=== PATIENT | male | born 1935 | race Caucasian/White ===

== ENCOUNTER 2016-10-30 05:52 | Inpatient (IN) ==
[2016-10-29 12:36] LABS: Basophils # 0.1 10*3/uL (0.0-0.2); Basophils % 0.7 % (0.0-0.8); Eosinophils # 0.2 10*3/uL (0.0-0.87); Eosinophils % 2.7 % (0.00-10.9); Hematocrit 41.8 VOL% (42.0-52.0); Hemoglobin 14.7 GM/DL (14.0-18.0); Immature Granulocytes % 0.7 %; Immature Granulocytes Absolute 0.06 #; Lymphocytes # 2.2 10*3/uL (1.4-4.0); Lymphocytes % 26.1 % (21.2-54.2); Mean Corpuscular HGB Conc 35.2 GM/DL (32-36); Mean Corpuscular Hemoglobin 31 PG (27-34); Mean Corpuscular Volume 89.1 FL (87-102); Mean Platelet Volume 10.7 FL (9.6-12.0); Monocytes % 11.4 % (1.7-12.7); Neutrophils % 58.4 % (38.7-73.9); Platelet Count 152 T/CUMM (130-400); Red Blood Count 4.69 MC/CUMM (3.8-5.5); White Blood Count 8.6 T/CUMM (4-12)
[2016-10-29 13:17] LABS: Albumin 3.8 G/DL (3.4-5.0); Bilirubin,Total 0.6 MG/DL (0.2-1.0); Osmolality,Calculated 283.1 MOS/KG (273-304); Potassium 5.1 MMOL/L (3.5-5.1); Total Protein 6.5 G/DL (6.4-8.3)
[2016-10-30] MEDS ORDERED: VANCOMYCIN INJ 500 MG in SODIUM CHLORIDE 0.9% 100 ML IV ONE (06:00)
[2016-10-30] MEDS ORDERED: VANCOMYCIN 500 MG VIAL ONE ×2 (06:04→07:07)
[2016-10-30] MEDS ORDERED: SODIUM CHLORIDE 0.9% 100 ML IV ONE (06:06)
[2016-10-30] MEDS ORDERED: LACTATED RINGERS 1,000 ML IV SCH (06:30)
[2016-10-30] MEDS ORDERED: VANCOMYCIN 1,000 MG VIAL ONE (06:32)
[2016-10-30] MEDS ORDERED: HEPARIN 5,000 UNIT/1 ML VIAL ONE (06:32)
[2016-10-30] MEDS ORDERED: THROMBIN TOPICAL (RECOMBINANT) 5,000 UNIT VIAL TOP ONE (06:33)
[2016-10-30] MEDS ORDERED: LIDOCAINE 2% TOP JELLY 20 ML VIAL INTRAURETH ONE (07:05)
[2016-10-30] MEDS ORDERED: HEPARIN/NACL 0.9% 2 UNITS/ML 2,000 ML IV ONE (07:33)
[2016-10-30] MEDS ORDERED: FAMOTIDINE 20 MG TABLET PO ONE (07:35)
[2016-10-30] MEDS ORDERED: LORazepam 1 MG TABLET PO ONE (07:35)
--- NOTE | 2016-10-30 07:44 | History and Physical Update ---
History and Physical Update - History and Physical H&P was reviewed, the patient examined and there: are no changes in the patients condition since last H&P was completed. - Physical Exam Mental Status: alert and oriented Heart: regular rate and rhythm Lung: clear to auscultation Abdomen: within normal limits Vitals: within normal limits
[2016-10-30] MEDS ORDERED: HEPARIN/NACL 0.9% 2 UNITS/ML 1,000 ML IV ONE (07:48)
[2016-10-30] MEDS ORDERED: DEXAMETHASONE 4 MG/1 ML VIAL ONE (08:00)
[2016-10-30] MEDS ORDERED: ROCURONIUM 100 MG/10 ML VIAL IV ONE (08:00)
[2016-10-30] MEDS ORDERED: PROPOFOL 200 MG/20 ML VIAL IV ONE (08:00)
[2016-10-30] MEDS ORDERED: ONDANSETRON 4 MG/2 ML VIAL ONE (08:00)
[2016-10-30] MEDS ORDERED: diphenhydrAMINE 50 MG/1 ML VIAL ONE (08:00)
[2016-10-30] MEDS ORDERED: LIDOCAINE 2% 5 ML VIAL ONE (08:00)
[2016-10-30] MEDS ORDERED: MIDAZOLAM 2 MG/2 ML VIAL ONE (08:04)
[2016-10-30] MEDS ORDERED: MIDAZOLAM 2 MG/2 ML VIAL IV ONE (08:08)
[2016-10-30] MEDS ORDERED: methylPREDNISolone SOD SUC 125 MG/2 ML VIAL ONE (08:48)
[2016-10-30 11:37] LABS: Apearance,Urine CLEAR (Clear); Bilirubin,Urine Negative (Negative); Blood, Urine Negative (Negative); Glucose,Urine (UA) Negative (Negative); Ketones,Urine Negative (Negative); Mucus,Urine Occasional /LPF (Occasional); Nitrite,Urine Negative (Negative); Protein,Urine Negative; RBC,Urine 1 /HPF (0-4); Squamous Epithelial Cell,Urine Occasional /HPF (0-10); Urine Color Yellow (Yellow); Urine Specific Gravity 1.013 (1.001-1.035); Urine Urobilinogen < 2.0 EU/DL (0.2-1.0); WBC,Urine 1 /HPF (0-6)
[2016-10-30 12:00] LABS: Hematocrit 35.7 VOL% (42.0-52.0)
[2016-10-30 12:01] LABS: Hemoglobin 12.5 GM/DL (14.0-18.0)
[2016-10-30] MEDS ORDERED: HYDROmorphone 2 MG/1 ML VIAL IV PRN (12:39)
[2016-10-30] MEDS ORDERED: oxyCODONE/ACETAMINOPHEN 5-325 MG TABLET PO PRN (12:39)
[2016-10-30] MEDS ORDERED: ONDANSETRON 4 MG/2 ML VIAL IV PRN (12:39)
--- NOTE | 2016-10-30 12:51 | Operative Note ---
Date of procedure: 10/30/16 Procedure: Dr. Agudelo operative report Pepito Flores. 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 Open repair of the right common femoral artery aneurysm with 8 mm Hemashield graft. Indications for the procedure Mr. 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 extensive vascular calcification at the bifurcation of the aorta after careful evaluation and discussion we have recommended a endovascular repair of his abdominal aortic and iliac aneurysms and repair of the right common femoral artery have explained the procedure its risks and complications in detail which he understands and accepts Description of the procedure: Patient is placed under general endotracheal anesthesia in the interventional radiology suite's abdomen groins are prepped with ChloraPrep and Ioban and draped in the usual fashion I began by making an incision over the right common femoral artery dissecting up under the inguinal ligament to control the external iliac artery and vein separately controlled the superior superficial femoral and profunda femoris vessels there was a significant common femoral artery aneurysm and this was controlled the patient received 5000 units of intravenous heparin. At this point Dr. Miguel Vincent joined the case and proceeded with the initial placement of catheters and the coil embolization of the inferior mesenteric artery Dr. Madie Vincent completed the placement of the ovation graft and its leg extensions to the bifurcation of the common iliacs completion angioplasty and arteriography was carried out the details of that portion of the procedure are separately dictated by Dr. Ramachandran. After the completion of the satisfactory repair of the aortic and iliac artery aneurysms I then proceeded to repair the right common femoral artery aneurysm by placing a Satinsky clamp across the external iliac and controlling the superficial femoral and profunda with Vesseloops. Notably the patient had bled around the sheaths throughout the placement of the endograft that required me to hold pressure throughout the entire placement of endograft was then able to move with control of the artery open and debride away the aneurysmal portion of divided and amputated the aneurysm just at the bifurcation of the common femoral and at the underneath the inguinal ligament did do a partial endarterectomy on both hands to remove extensive hard plaque I chose an 8 mm Hemashield graft and anastomosed it in 2 and to the external iliac artery then flushed backflush the superior professional femoral and profunda and anastomosis the graft and into the bifurcation of the common femoral artery with 5-0 Prolene suture.. Graft was flushed in the lymph her back flushed prior to completing that anastomosis flow was restored into first the profunda and then to the superficial femoral and on noted by Doppler good flow as well as palpable pulses in both vessels hemostasis was good I elected not to reverse the heparin at this point due to the fact that the patient had to have extra doses of heparin throughout the case based on a CTs. Hemostasis did appear to be good irrigated used Tisseel around the anastomoses and in the femoral canal I closed the incision with running 2-0 Monocryl on the deep tissues and 4-0 Monocryl on the skin. Blood loss is estimated 1200 cc sponge needle and instrument counts are correct patient's feet were warm and well-perfused completion of the procedure he maintained steady heart rate blood pressure and urine out through output throughout the operation. Surgeon / Physician: Kavon Agudelo Results - Labs CBC & BMP: 10/30/16 11:54 10/29/16 12:20 Discharge Plan - Discharge Medications No Action Multivitamin [Multivitamins] 1 each PO DAILY Aspirin [Ecotrin] 325 mg PO DAILY Carvedilol 12.5 mg PO BID Simvastatin 40 mg PO BEDTIME Lisinopril [Prinivil] 20 mg PO DAILY Metformin HCl [Metformin HCl ER] 500 mg PO DAILY - Follow Up or Referral - Forms/Instructions
--- NOTE | 2016-10-30 13:30 | Anesthesia Post-Op ---
Anesthesia Post OP - Post Ansesthetic Evaluation Patient seen in post op: Yes Resp: within normal limits CV: within normal limits Mental: within normal limits Temp: within normal limits [id number]: within normal limits Nausea and Vomiting: within normal limits Pain: within normal limits
[2016-10-30] MEDS ORDERED: SEVOFLURANE 1 UNIT/15 MINUTE INH ONE (14:05)
[2016-10-30] MEDS ORDERED: LACTATED RINGERS 1,000 ML IV ONE (14:05)
[2016-10-30] MEDS ORDERED: SODIUM CHLORIDE 0.9% 2,000 ML IV ONE (14:05)
[2016-10-30 15:22] LABS: Hematocrit 37.2 VOL% (42.0-52.0); Hemoglobin 12.8 GM/DL (14.0-18.0)
[2016-10-30 16:10] LABS: Calcium 8.4 MG/DL (8.5-10.1); Osmolality,Calculated 288.8 MOS/KG (273-304); Potassium 4.4 MMOL/L (3.5-5.1)
[2016-10-30] MEDS: DEXTROSE 5% NACL 0.45% 1,000 ML IV SCH (16:38)
--- NOTE | 2016-10-30 16:44 | Event Note ---
Mr. is awake and alert with good vital signs but has a bit of confusion his feet are warm although I do not palpate pedal pulses today blood work looks good postoperatively vital signs look good incisions look good
[2016-10-30] MEDS ORDERED: SIMVASTATIN 40 MG TABLET PO SCH (21:00)
[2016-10-30] MEDS: CARVEDILOL 12.5 MG TABLET PO SCH (21:09)
[2016-10-31] MEDS: DEXTROSE 5% NACL 0.45% 1,000 ML IV SCH ×2 (00:20→06:04)
--- NOTE | 2016-10-31 00:59 | Interventional Radiology Rpt ---
IR endo repair AAA [id number], IR endo repair AAA ext [id number], US guide vascular access 10/30/2016 7:47 AM Operating Physicians: Dawit Ramachandran M.D. Zuhair Agudelo M.D., Marcelino Vincent M.D. Indication: Bilateral common iliac artery aneurysms Total number of images were procedure: 723 General anesthesia was utilized for the procedure. See anesthesia notes for further details. Intravenous heparin 10,000 units was administered with interval ACT checks as needed. Time out: A formal timeout performed. Patient was placed under general endotracheal anesthesia. Dr. Benton Agudelo provided primary cutdown to the right common femoral arteries, which will be described under separate report if necessary. The right common femoral artery was directly accessed with a vascular needle. This was cannulized with a Momailson wire which was advanced into the suprarenal abdominal aorta. Needle was exchanged for a standard 6 Liberian vascular sheath and initially, a Cobra catheter advanced into the suprarenal abdominal aorta. Initial attempt to cannulate the inferior mesenteric artery are unsuccessful. A large ill 3 lumbar artery was incidentally catheterized and arteriogram series 1 demonstrates filling of this prominent lumbar vessel. The standard 6 Liberian sheath was then exchanged for a 12 Liberian working sheath over the stiff wire. A Yanick catheter was then advanced and used to catheterize the inferior mesenteric artery. This was confirmed with brief arteriogram, series 2. Subsequent, a single 7 x 3 tornado coil was advanced and deployed without difficulty into the proximal inferior mesenteric artery. Subsequent, the marker wire was then readvanced into the upper abdominal aorta. Attention was then turned towards percutaneous access of the left common femoral artery. Using ultrasound guidance, the left common femoral artery was accessed without difficulty. Ultrasound image catheter was stored for the patient's permanent record. At this point, the Perclose device was utilized and left in position for vascular closure at the conclusion of the case. Subsequently, the 12 Liberian vascular working sheath was advanced into the left common iliac artery without difficulty. Subsequently, the main body graft was advanced through the ipsilateral right common femoral artery access site. The measuring pigtail catheter was advanced through the left/contralateral access. 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 Initial positioning of the main body and 29 mm Ovation IX Endograft was confirmed with subsequent deployment of the suprarenal fixators without difficulty. At this point, the polymer was mixed and connected to the injection port and allowed to fill with the provided syringe compressor. Fluoroscopy now demonstrates the polymer filling the graft, as expected At this point we obtained contralateral limb access with a Glidewire via left groin access. The flush catheter was withdrawn over a Glidewire. Glidewire was then withdrawn and the contralateral gate directly accessed. The flush catheter was advanced into the lumen of the primary device and spun to confirm intraluminal positioning. Through the left groin sheath, a retrograde right pelvis arteriogram was performed in an ARABIC projection to confirm the position of the origin of the left hypogastric artery. Subsequently, the 22 x 160 iliac limb delivery system was advanced over the guidewire and deployed without difficulty. The ipsilateral limb of the main body was then deployed in its entirety. The deployment apparatus was removed. Through the right groin sheath, a retrograde left pelvic arteriogram was performed to confirm the ostium of the right hypogastric artery. After measurements were established, the ipsilateral/right 22 x 140 iliac railroad dining car stewardess was deployed into the right common iliac artery. At this point, the Reliant balloon was then advanced through the contralateral sheath and the main body and proximal ceiling rings were tacked down. Attention was then returned towards the right limb. Due to tortuosity and mild aneurysmal dilatation of the vessel, the ipsilateral limb was short above the anticipated landing zone and, therefore, an 18 x 120 railroad dining car stewardess was subsequently deployed with good apposition proximal and distal. Sequential angioplasty was then performed by and Dr. Agudelo utilizing 12 x 40 mm balloons from the inflow portion of the main body device, through the flow divider, and to the outflow portion of both iliac extenders. From the right groin, a flush catheter was then advanced into the suprarenal abdominal aorta. An aortogram was performed demonstrating probable type III endoleak via prominent lumbar vessels or possible type I A leak, which was minimal. Given the findings of adequate graft positioning and exclusion of the bilateral common iliac aneurysms, there was felt to be no further intervention required at this time. Attention was then turned towards closing the left common femoral artery percutaneous access. The 2 previously deployed Perclose devices were then utilized to obtain hemostasis without culture. Sterile dressings were applied. The right-sided sheath and wire were removed and Dr. Agudelo primarily repaired and then subsequently closed the right arteriotomy site, which will be described under separate report. Patient was awakened and transferred to recovery in stable condition. Estimated blood loss: 500 mL. Contrast: Omnipaque 350, 150 cc. Fluoroscopy time: 39.2 minutes. Impression: Technically successful endovascular repair of bilateral common iliac artery aneurysms utilizing Ovation iX Endograft as described above. PROCEDURE INTERPRETED AT [facility] DEPARTMENT OF RADIOLOGY Final Report Signed by: Dawit Ramachandran
[2016-10-31 06:36] LABS: Basophils % 0.1 % (0.0-0.8); Eosinophils % 0.1 % (0.00-10.9); Hematocrit 31.3 VOL% (42.0-52.0); Immature Granulocytes % 0.7 %; Immature Granulocytes Absolute 0.09 #; Lymphocytes # 1.5 10*3/uL (1.4-4.0); Lymphocytes % 11.4 % (21.2-54.2); Mean Corpuscular HGB Conc 33.2 GM/DL (32-36); Mean Corpuscular Hemoglobin 30 PG (27-34); Mean Corpuscular Volume 91.3 FL (87-102); Mean Platelet Volume 11.4 FL (9.6-12.0); Monocytes # 1.4 10*3/uL (0.11-0.8); Monocytes % 11.2 % (1.7-12.7); Neutrophils # 9.9 10*3/uL (1.4-7.4); Neutrophils % 76.5 % (38.7-73.9); Red Cell Distribution Width 13.1 % (9.3-17.3)
[2016-10-31 06:47] LABS: Red Blood Count 3.43 MC/CUMM (3.8-5.5); White Blood Count 12.9 T/CUMM (4-12)
[2016-10-31 06:48] LABS: Hemoglobin 10.4 GM/DL (14.0-18.0); Platelet Count 121 T/CUMM (130-400)
[2016-10-31 07:09] LABS: Calcium 7.7 MG/DL (8.5-10.1); Osmolality,Calculated 284.1 MOS/KG (273-304); Potassium 4.3 MMOL/L (3.5-5.1)
[2016-10-31] MEDS ORDERED: DEXTROSE 50% 25 GM/50 ML VIAL IV PRN (07:55)
[2016-10-31] MEDS ORDERED: GLUCAGON 1 MG VIAL IM PRN (07:55)
--- NOTE | 2016-10-31 08:45 | Event Note ---
There is diffuse awake alert ambulating doing well feet and legs feel good incision okay. I will go ahead and stop his IV fluids start a diabetic diet have him ambulate this morning he may we will be ready to go home this afternoon. Blood count has dropped to 31 but be creatinine are good so there is no indication for transfusion
[2016-10-31] MEDS ORDERED: LISINOPRIL 20 MG TABLET PO SCH (09:00)
[2016-10-31] MEDS ORDERED: ASPIRIN EC 325 MG TABLET PO SCH (09:00)
[2016-10-31] MEDS: CARVEDILOL 12.5 MG TABLET PO SCH (09:29)
[2016-10-31 11:12] VITALS: BP 106/49
--- NOTE | 2016-10-31 13:10 | Discharge Summary ---
Hospital Course - Hospital Course Hospital Course: Mr. Chriss Flores 80-year-old man was admitted with abdominal aortic and bilateral iliac and a right common femoral artery aneurysm he underwent endovascular repair of the aortic and iliac aneurysms and open repair of the right common femoral aneurysm he is up and ambulatory his vital signs are good blood counts are good and he is ready for discharge have discussed with him wound care exercise diet and medications I will add Plavix 75 mg twice daily for approximately 3 months and we will give him Percocet for pain I will see him in the office in 1 week and then routine follow-up with CT angiograms at regular intervals as is the norm. Specialty Discharge - Follow Up or Referrals Discharge Plan - Discharge Data Disposition: Disch To Home/Self Care Condition at Discharge: Stable Discharge Diet: diabetic diet Activity: resume usual activities as tolerated Hygiene: may shower Weight Bearing at Discharge: full weight bearing Driving: not until seen by doctor Contact your physician if you experience:: fever over 101, Redness or swelling, Bleeding - Discharge Medications New Clopidogrel [Plavix] 75 mg PO DAILY #90 tablet oxyCODONE/ACETAMINOPHEN 5-325 [Percocet 5-325] 1 tablet PO Q4H PRN #20 tablet PRN Reason: Pain Moderate To Severe (4-10) Continue Multivitamin [Multivitamins] 1 each PO DAILY Aspirin [Ecotrin] 325 mg PO DAILY Carvedilol 12.5 mg PO BID Simvastatin 40 mg PO BEDTIME Lisinopril [Prinivil] 20 mg PO DAILY Metformin HCl [Metformin HCl ER] 500 mg PO DAILY Docusate Sodium [Stool Softener] 100 mg PO DAILY Nitroglycerin Sl Tab [Nitrostat] 0.4 mg SL Q5M PRN PRN Reason: Chest Pain - Follow Up or Referral Follow Up: Kavon Agudelo MD [Physician] - 1 Week - Forms/Instructions Instructions: Endovascular Abdominal Aortic Aneurysm Repair (DC) Exam - Constitutional Vitals: Period Temp Pulse Resp BP Sys/Rodriguez Pulse Ox Last 24 Hr 97.2 F-998.0 F 54-94 14-24 92-119/43-69 95-100 Discharge Results Labs on day of discharge: Labs from last 24 hours 10/31/1617 10/30/16 05:32 05:32 16:15 WBC 12.9 H D RBC 3.43 L D Hgb 10.4 L D Hct 31.3 L MCV 91.3 MCH 30 MCHC 33.2 RDW 13.1 Plt Count 121 L D MPV 11.4 Neut % (Auto) 76.5 H Lymph % (Auto) 11.4 L Rooks % (Auto) 11.2 Eos % (Auto) 0.1 Baso % (Auto) 0.1 Neut # (Auto) 9.9 H Lymph # (Auto) 1.5 Rooks # (Auto) 1.4 H Eos # (Auto) 0.0 Baso # (Auto) 0.0 Immature Gran % 0.7 Nucleated RBC % 0.0 Immature Gran # 0.09 Nucleated RBCs # 0.00 Sodium 142 Potassium 4.3 Chloride 108 H Carbon Dioxide 25 Anion Gap 13.3 BUN 12 Creatinine 0.90 GFR Calculation 111 BUN/Creatinine Ratio 13.00 Glucose 129 H POC Glucose 160 H Calculated Osmolality 284.1 Calcium 7.7 L 10/30/16 10/30/16 15:08 15:08 WBC RBC Hgb 12.8 L Hct 37.2 L MCV MCH MCHC RDW Plt Count MPV Neut % (Auto) Lymph % (Auto) Rooks % (Auto) Eos % (Auto) Baso % (Auto) Neut # (Auto) Lymph # (Auto) Rooks # (Auto) Eos # (Auto) Baso # (Auto) Immature Gran % Nucleated RBC % Immature Gran # Nucleated RBCs # Sodium 144 Potassium 4.4 Chloride 111 H Carbon Dioxide 22 Anion Gap 15.4 H BUN 12 Creatinine 0.80 GFR Calculation 116 BUN/Creatinine Ratio 15.00 Glucose 152 H POC Glucose Calculated Osmolality 288.8 Calcium 8.4 L DS: Provider Date of admission: 10/30/16 05:52 Primary care physician: Cheyanne Francois Attending physician on admission: Kavon Agudelo MD Discharging clinician: Kavon Agudelo MD
== END 2016-10-31 14:45 | disposition home or self-care (01) | DRG 270 ==
LOC: N.SDSINP 05:52 → N.3E 14:47
PROVIDERS: ADMIT Surgery; ATTEND Surgery
PROC: IRERAAA (2016-10-30 07:30)

== ENCOUNTER 2017-11-13 23:07 | Inpatient (IN) ==
[2017-11-14] MEDS ORDERED: FUROSEMIDE 100 MG/10 ML VIAL IV STA (01:18)
[2017-11-14] MEDS ORDERED: cefTRIAXone 1,000 MG in SODIUM CHLORIDE 0.9% 100 ML IV STA (01:18)
[2017-11-14 01:45] LABS: Basophils # 0.1 10*3/uL (0.0-0.2); Basophils % 0.6 % (0.0-0.8); Eosinophils # 0.2 10*3/uL (0.0-0.87); Eosinophils % 1.7 % (0.00-10.9); Hemoglobin 13.4 GM/DL (14.0-18.0); Immature Granulocytes % 0.5 %; Immature Granulocytes Absolute 0.05 #; Lymphocytes # 2.1 10*3/uL (1.4-4.0); Lymphocytes % 22.4 % (21.2-54.2); Mean Corpuscular HGB Conc 34.4 GM/DL (32-36); Mean Corpuscular Hemoglobin 31 PG (27-34); Mean Corpuscular Volume 90.5 FL (87-102); Mean Platelet Volume 11.9 FL (9.6-12.0); Monocytes # 1.2 10*3/uL (0.11-0.8); Monocytes % 12.6 % (1.7-12.7); Neutrophils # 5.9 10*3/uL (1.4-7.4); Neutrophils % 62.2 % (38.7-73.9); Platelet Count 163 T/CUMM (130-400); Red Blood Count 4.31 MC/CUMM (3.8-5.5); Red Cell Distribution Width 13.3 % (9.3-17.3); White Blood Count 9.4 T/CUMM (4-12)
[2017-11-14 01:54] LABS: INR 1.1; PT Patient Result 11.7 SECS; Partial Thromboplastin Time 25.7 SECS (0-40)
[2017-11-14 01:57] LABS: ABG Base Excess -2.8 MMOL/L (-2.5-2.5); ABG HCO3 22.1 MMOL/L (20-26); ABG Oxygen Saturation 97.1 % (95-100); ABG PCO2 29.6 MM HG (35-48); ABG PH 7.442 (7.35-7.45); ABG PO2 92.8 MM HG (80-95); ABG TCO2 17.5 MMOL/L (23-27); Allen Test Positive
[2017-11-14] MEDS ORDERED: FUROSEMIDE 40 MG/4 ML VIAL ONE (01:59)
[2017-11-14 02:09] LABS: Albumin 3.7 G/DL (3.4-5.0); Bilirubin,Total 0.9 MG/DL (0.2-1.0); Calcium 8.8 MG/DL (8.5-10.1); Osmolality,Calculated 281.5 MOS/KG (273-304); Potassium 4.5 MMOL/L (3.5-5.1); Total Protein 6.3 G/DL (6.4-8.3)
[2017-11-14] MEDS ORDERED: FUROSEMIDE 40 MG/4 ML VIAL IV SCH (08:32)
[2017-11-14] MEDS ORDERED: GLUCAGON 1 MG VIAL IM PRN (08:32)
[2017-11-14] MEDS ORDERED: DEXTROSE 50% 25 GM/50 ML VIAL IV PRN (08:32)
[2017-11-14] MEDS ORDERED: NITROGLYCERIN SL 0.4 MG TABLET SL PRN (08:32)
[2017-11-14] MEDS ORDERED: ASPIRIN EC 325 MG TABLET PO SCH (09:00)
[2017-11-14] MEDS ORDERED: ENOXAPARIN 40 MG/0.4 ML SYRINGE SUBCUT SCH (09:00)
[2017-11-14] MEDS: DOCUSATE SODIUM 100 MG CAPSULE PO SCH (09:21)
[2017-11-14] MEDS: POLYCARBOPHIL 625 MG TABLET PO SCH (09:21)
[2017-11-14] MEDS: LISINOPRIL 20 MG TABLET PO SCH (09:21)
[2017-11-14] MEDS: POTASSIUM CHLORIDE 20 MEQ TABLET PO SCH ×2 (09:21→21:33)
[2017-11-14] MEDS: PANTOPRAZOLE 40 MG TABLET PO SCH (09:21)
[2017-11-14] MEDS: CARVEDILOL 12.5 MG TABLET PO SCH ×2 (09:21→21:33)
[2017-11-14] MEDS: MULTIVITAMIN (CENTRUM) TABLET PO SCH (09:21)
[2017-11-14] MEDS: ENOXAPARIN 120 MG/0.8 ML SYRINGE SUBCUT SCH (15:32)
[2017-11-14] MEDS: FUROSEMIDE 40 MG/4 ML VIAL IV SCH (15:32)
[2017-11-14 20:42] LABS: Apearance,Urine CLEAR (Clear); Bilirubin,Urine Negative (Negative); Blood, Urine Negative (Negative); Glucose,Urine (UA) Negative (Negative); Hyaline Casts,Urine 2 /LPF (0-3); Ketones,Urine Negative (Negative); Mucus,Urine Occasional /LPF (Occasional); Nitrite,Urine Negative (Negative); Protein,Urine Negative; Urine Color Yellow (Yellow); Urine Specific Gravity 1.006 (1.001-1.035); WBC,Urine <1 /HPF (0-6)
[2017-11-14] MEDS: SIMVASTATIN 40 MG TABLET PO SCH (21:33)
[2017-11-15] MEDS: ENOXAPARIN 120 MG/0.8 ML SYRINGE SUBCUT SCH ×2 (04:10→16:10)
[2017-11-15 06:17] LABS: Basophils # 0.1 10*3/uL (0.0-0.2); Basophils % 0.9 % (0.0-0.8); Eosinophils # 0.1 10*3/uL (0.0-0.87); Eosinophils % 1.7 % (0.00-10.9); Hematocrit 40.6 VOL% (42.0-52.0); Hemoglobin 13.6 GM/DL (14.0-18.0); Immature Granulocytes % 0.8 %; Immature Granulocytes Absolute 0.06 #; Lymphocytes # 1.7 10*3/uL (1.4-4.0); Mean Corpuscular HGB Conc 33.5 GM/DL (32-36); Mean Corpuscular Hemoglobin 30 PG (27-34); Mean Corpuscular Volume 89.8 FL (87-102); Mean Platelet Volume 11.8 FL (9.6-12.0); Monocytes % 12.8 % (1.7-12.7); NRBC # 0.02 10*3/uL; Neutrophils # 4.8 10*3/uL (1.4-7.4); Neutrophils % 61.8 % (38.7-73.9); Platelet Count 148 T/CUMM (130-400); Red Blood Count 4.52 MC/CUMM (3.8-5.5); Red Cell Distribution Width 13.3 % (9.3-17.3); White Blood Count 7.8 T/CUMM (4-12)
[2017-11-15 06:49] LABS: Osmolality,Calculated 281.5 MOS/KG (273-304); Potassium 4.6 MMOL/L (3.5-5.1)
[2017-11-15] MEDS: MULTIVITAMIN (CENTRUM) TABLET PO SCH (08:58)
[2017-11-15] MEDS: POLYCARBOPHIL 625 MG TABLET PO SCH (08:58)
[2017-11-15] MEDS: CARVEDILOL 12.5 MG TABLET PO SCH ×2 (08:59→21:01)
[2017-11-15] MEDS: PANTOPRAZOLE 40 MG TABLET PO SCH (08:59)
[2017-11-15] MEDS: POTASSIUM CHLORIDE 20 MEQ TABLET PO SCH ×2 (08:59→21:01)
[2017-11-15] MEDS: DOCUSATE SODIUM 100 MG CAPSULE PO SCH (08:59)
[2017-11-15] MEDS: ASPIRIN EC 81 MG TABLET PO SCH (08:59)
[2017-11-15] MEDS: LISINOPRIL 20 MG TABLET PO SCH (08:59)
[2017-11-15] MEDS: FUROSEMIDE 40 MG/4 ML VIAL IV SCH ×2 (09:01→16:11)
[2017-11-15] MEDS ORDERED: LACTULOSE 20 GM/30 ML UDCUP PO PRN (20:27)
[2017-11-15] MEDS: SIMVASTATIN 40 MG TABLET PO SCH (21:01)
[2017-11-16] MEDS: ENOXAPARIN 120 MG/0.8 ML SYRINGE SUBCUT SCH (05:10)
[2017-11-16 05:45] LABS: Basophils # 0.1 10*3/uL (0.0-0.2); Basophils % 0.9 % (0.0-0.8); Eosinophils # 0.1 10*3/uL (0.0-0.87); Eosinophils % 1.5 % (0.00-10.9); Hematocrit 39.8 VOL% (42.0-52.0); Hemoglobin 13.6 GM/DL (14.0-18.0); Immature Granulocytes % 0.5 %; Immature Granulocytes Absolute 0.04 #; Lymphocytes # 2.1 10*3/uL (1.4-4.0); Mean Corpuscular HGB Conc 34.2 GM/DL (32-36); Mean Corpuscular Hemoglobin 31 PG (27-34); Mean Corpuscular Volume 89.4 FL (87-102); Mean Platelet Volume 11.9 FL (9.6-12.0); Monocytes # 1.2 10*3/uL (0.11-0.8); Monocytes % 14.2 % (1.7-12.7); NRBC # 0.02 10*3/uL; Neutrophils # 4.7 10*3/uL (1.4-7.4); Neutrophils % 56.9 % (38.7-73.9); Platelet Count 146 T/CUMM (130-400); Red Blood Count 4.45 MC/CUMM (3.8-5.5); Red Cell Distribution Width 13.3 % (9.3-17.3); White Blood Count 8.2 T/CUMM (4-12)
[2017-11-16 06:19] LABS: Calcium 9.1 MG/DL (8.5-10.1); Osmolality,Calculated 281.5 MOS/KG (273-304); Potassium 4.8 MMOL/L (3.5-5.1)
[2017-11-16 08:18] VITALS: BP 99/64
[2017-11-16] MEDS: FUROSEMIDE 40 MG/4 ML VIAL IV SCH (08:52)
[2017-11-16] MEDS: POLYCARBOPHIL 625 MG TABLET PO SCH (08:55)
[2017-11-16] MEDS: POTASSIUM CHLORIDE 20 MEQ TABLET PO SCH (08:55)
[2017-11-16] MEDS: MULTIVITAMIN (CENTRUM) TABLET PO SCH (08:55)
[2017-11-16] MEDS: DOCUSATE SODIUM 100 MG CAPSULE PO SCH (08:57)
[2017-11-16] MEDS: ASPIRIN EC 81 MG TABLET PO SCH (08:57)
[2017-11-16] MEDS: CARVEDILOL 12.5 MG TABLET PO SCH (08:57)
[2017-11-16] MEDS: PANTOPRAZOLE 40 MG TABLET PO SCH (08:57)
[2017-11-16] MEDS: LISINOPRIL 20 MG TABLET PO SCH (08:58)
== END 2017-11-16 12:11 | disposition home or self-care (01) | DRG 293 ==
LOC: N.ED 23:07 → N.EDINP 11-14 06:04 → N.TELEN 11-14 08:30
PROVIDERS: ADMIT Internal Medicine Geriatric Medicine; ATTEND Internal Medicine Geriatric Medicine

== ENCOUNTER 2018-01-17 19:35 | Inpatient (IN) ==
[2018-01-17 21:13] LABS: Basophils % 0.3 % (0.0-0.8); Eosinophils # 0.1 10*3/uL (0.0-0.87); Eosinophils % 1.4 % (0.00-10.9); Hematocrit 41.3 VOL% (42.0-52.0); Hemoglobin 13.7 GM/DL (14.0-18.0); Immature Granulocytes % 0.8 %; Immature Granulocytes Absolute 0.05 #; Lymphocytes # 1.2 10*3/uL (1.4-4.0); Lymphocytes % 18.7 % (21.2-54.2); Mean Corpuscular HGB Conc 33.2 GM/DL (32-36); Mean Corpuscular Hemoglobin 29 PG (27-34); Mean Corpuscular Volume 88.4 FL (87-102); Monocytes # 0.8 10*3/uL (0.11-0.8); Monocytes % 12.4 % (1.7-12.7); Neutrophils # 4.4 10*3/uL (1.4-7.4); Neutrophils % 66.4 % (38.7-73.9); Platelet Count 123 T/CUMM (130-400); Red Blood Count 4.67 MC/CUMM (3.8-5.5); Red Cell Distribution Width 16.8 % (9.3-17.3); White Blood Count 6.5 T/CUMM (4-12)
[2018-01-17 21:40] LABS: Bilirubin,Total 1.6 MG/DL (0.2-1.0); Calcium 8.4 MG/DL (8.5-10.1); Osmolality,Calculated 271.2 MOS/KG (273-304); Potassium 4.3 MMOL/L (3.5-5.1); Total Protein 5.8 G/DL (6.4-8.3)
[2018-01-17] MEDS ORDERED: FUROSEMIDE 40 MG/4 ML VIAL IV STA ×2 (22:01→22:30)
[2018-01-18] MEDS ORDERED: ACETAMINOPHEN 325 MG TABLET PO PRN (01:45)
[2018-01-18] MEDS ORDERED: DEXTROSE 50% 25 GM/50 ML VIAL IV PRN (01:45)
[2018-01-18] MEDS ORDERED: GLUCAGON 1 MG VIAL IM PRN (01:45)
[2018-01-18] MEDS ORDERED: MAGNESIUM SULF RIDER 4 GM in PREMIX 1 EACH IV PRN (01:45)
[2018-01-18] MEDS ORDERED: MAGNESIUM SULF RIDER 2 GM in PREMIX 1 EACH IV PRN (01:45)
[2018-01-18 04:59] LABS: Osmolality,Calculated 274.1 MOS/KG (273-304); Potassium 3.8 MMOL/L (3.5-5.1)
[2018-01-18] MEDS: INSULIN LISPRO 100 UNIT/ML SUBCUT SCH ×4 (07:41→20:56)
[2018-01-18] MEDS: CARVEDILOL 3.125 MG TABLET PO SCH ×2 (08:57→17:48)
[2018-01-18] MEDS: DOCUSATE SODIUM 100 MG CAPSULE PO SCH ×2 (08:58→20:54)
[2018-01-18] MEDS: ASPIRIN CHEW 81 MG TABLET PO SCH (08:58)
[2018-01-18] MEDS: FUROSEMIDE 40 MG/4 ML VIAL IV SCH ×2 (08:59→17:48)
[2018-01-18] MEDS ORDERED: LISINOPRIL 2.5 MG TABLET PO SCH (09:00)
[2018-01-19] MEDS: INSULIN LISPRO 100 UNIT/ML SUBCUT SCH ×4 (08:07→21:14)
[2018-01-19] MEDS: FUROSEMIDE 40 MG/4 ML VIAL IV SCH ×2 (08:53→16:36)
[2018-01-19] MEDS: ASPIRIN CHEW 81 MG TABLET PO SCH (08:57)
[2018-01-19] MEDS: DOCUSATE SODIUM 100 MG CAPSULE PO SCH ×2 (08:57→21:14)
[2018-01-19] MEDS: CARVEDILOL 3.125 MG TABLET PO SCH ×2 (08:57→16:36)
[2018-01-19 11:06] LABS: Calcium 8.8 MG/DL (8.5-10.1); Osmolality,Calculated 269.5 MOS/KG (273-304); Potassium 4.5 MMOL/L (3.5-5.1)
[2018-01-19] MEDS: metOLazone 5 MG TABLET PO SCH (11:51)
[2018-01-19] MEDS: APIXABAN 5 MG TABLET PO SCH (21:14)
[2018-01-19] MEDS: SIMVASTATIN 40 MG TABLET PO SCH (21:14)
[2018-01-20 03:54] LABS: Basophils # 0.1 10*3/uL (0.0-0.2); Basophils % 0.6 % (0.0-0.8); Eosinophils # 0.1 10*3/uL (0.0-0.87); Eosinophils % 0.9 % (0.00-10.9); Hemoglobin 14.8 GM/DL (14.0-18.0); Immature Granulocytes % 0.9 %; Immature Granulocytes Absolute 0.07 #; Lymphocytes # 1.6 10*3/uL (1.4-4.0); Lymphocytes % 20.4 % (21.2-54.2); Mean Corpuscular HGB Conc 33.6 GM/DL (32-36); Mean Corpuscular Hemoglobin 29 PG (27-34); Mean Corpuscular Volume 86.6 FL (87-102); Mean Platelet Volume 12.1 FL (9.6-12.0); Monocytes % 12.8 % (1.7-12.7); Neutrophils % 64.4 % (38.7-73.9); Platelet Count 136 T/CUMM (130-400); Red Blood Count 5.08 MC/CUMM (3.8-5.5); Red Cell Distribution Width 17.2 % (9.3-17.3); White Blood Count 7.8 T/CUMM (4-12)
[2018-01-20 04:34] LABS: Calcium 8.8 MG/DL (8.5-10.1); Osmolality,Calculated 267.7 MOS/KG (273-304); Potassium 4.3 MMOL/L (3.5-5.1)
[2018-01-20] MEDS: INSULIN LISPRO 100 UNIT/ML SUBCUT SCH ×4 (08:04→23:11)
[2018-01-20] MEDS: FUROSEMIDE 40 MG/4 ML VIAL IV SCH ×2 (08:44→16:05)
[2018-01-20] MEDS: APIXABAN 5 MG TABLET PO SCH ×2 (08:45→21:23)
[2018-01-20] MEDS: DOCUSATE SODIUM 100 MG CAPSULE PO SCH ×3 (08:46→21:23)
[2018-01-20] MEDS: ASPIRIN CHEW 81 MG TABLET PO SCH (08:46)
[2018-01-20] MEDS: CARVEDILOL 3.125 MG TABLET PO SCH ×2 (08:47→16:06)
[2018-01-20] MEDS ORDERED: metOLazone 5 MG TABLET PO SCH (09:00)
[2018-01-20] MEDS: metOLazone 5 MG TABLET PO SCH (09:22)
[2018-01-20] MEDS: SIMVASTATIN 40 MG TABLET PO SCH (21:22)
[2018-01-21 05:32] LABS: Calcium 8.8 MG/DL (8.5-10.1); Osmolality,Calculated 263.1 MOS/KG (273-304); Potassium 4.2 MMOL/L (3.5-5.1)
[2018-01-21] MEDS: FUROSEMIDE 40 MG/4 ML VIAL IV SCH ×2 (08:35→16:50)
[2018-01-21] MEDS: DOCUSATE SODIUM 100 MG CAPSULE PO SCH ×3 (08:37→21:10)
[2018-01-21] MEDS: CARVEDILOL 3.125 MG TABLET PO SCH ×2 (08:37→16:51)
[2018-01-21] MEDS: APIXABAN 5 MG TABLET PO SCH ×2 (08:37→21:10)
[2018-01-21] MEDS: ASPIRIN CHEW 81 MG TABLET PO SCH (08:37)
[2018-01-21] MEDS: INSULIN LISPRO 100 UNIT/ML SUBCUT SCH ×4 (08:38→21:13)
[2018-01-21] MEDS: metOLazone 5 MG TABLET PO SCH (09:29)
[2018-01-21] MEDS ORDERED: CARVEDILOL 3.125 MG TABLET PO ONE (17:22)
[2018-01-21] MEDS: CARVEDILOL 6.25 MG TABLET PO SCH (21:10)
[2018-01-21] MEDS: SIMVASTATIN 40 MG TABLET PO SCH (21:10)
[2018-01-22] MEDS: DOCUSATE SODIUM 100 MG CAPSULE PO SCH ×3 (09:43→21:35)
[2018-01-22] MEDS: CARVEDILOL 6.25 MG TABLET PO SCH ×2 (09:43→21:35)
[2018-01-22] MEDS: metOLazone 5 MG TABLET PO SCH (09:43)
[2018-01-22] MEDS: ASPIRIN CHEW 81 MG TABLET PO SCH (09:43)
[2018-01-22] MEDS: FUROSEMIDE 40 MG/4 ML VIAL IV SCH ×2 (09:44→16:25)
[2018-01-22] MEDS: APIXABAN 5 MG TABLET PO SCH ×2 (09:44→21:35)
[2018-01-22] MEDS: INSULIN LISPRO 100 UNIT/ML SUBCUT SCH ×4 (09:45→21:36)
[2018-01-22] MEDS ORDERED: MAGNESIUM HYDROXIDE SUSP 30 ML UDCUP PO PRN (11:04)
[2018-01-22] MEDS: DIGOXIN 0.25 MG TABLET PO SCH ×2 (11:22→16:26)
[2018-01-22] MEDS: SIMVASTATIN 40 MG TABLET PO SCH (21:36)
[2018-01-23 05:26] LABS: Basophils % 0.4 % (0.0-0.8); Eosinophils # 0.1 10*3/uL (0.0-0.87); Eosinophils % 1.3 % (0.00-10.9); Hematocrit 38.3 VOL% (42.0-52.0); Hemoglobin 13.1 GM/DL (14.0-18.0); Immature Granulocytes % 1.1 %; Immature Granulocytes Absolute 0.06 #; Lymphocytes % 18.5 % (21.2-54.2); Mean Corpuscular HGB Conc 34.2 GM/DL (32-36); Mean Corpuscular Hemoglobin 29 PG (27-34); Mean Corpuscular Volume 85.1 FL (87-102); Monocytes # 0.7 10*3/uL (0.11-0.8); Monocytes % 12.4 % (1.7-12.7); Neutrophils # 3.7 10*3/uL (1.4-7.4); Neutrophils % 66.3 % (38.7-73.9); Platelet Count 109 T/CUMM (130-400); White Blood Count 5.6 T/CUMM (4-12)
[2018-01-23 05:53] LABS: Calcium 8.2 MG/DL (8.5-10.1); Osmolality,Calculated 274.1 MOS/KG (273-304); Potassium 2.8 MMOL/L (3.5-5.1)
[2018-01-23] MEDS ORDERED: POTASSIUM CHLORIDE 20 MEQ TABLET PO PRN (06:21)
[2018-01-23] MEDS ORDERED: POTASSIUM CHLORIDE 20 MEQ TABLET PO ONE ×2 (07:56→14:10)
[2018-01-23] MEDS: FUROSEMIDE 40 MG/4 ML VIAL IV SCH (09:49)
[2018-01-23] MEDS: DOCUSATE SODIUM 100 MG CAPSULE PO SCH ×2 (09:49→09:54)
[2018-01-23] MEDS: INSULIN LISPRO 100 UNIT/ML SUBCUT SCH ×2 (09:49→12:25)
[2018-01-23] MEDS: ASPIRIN CHEW 81 MG TABLET PO SCH (09:49)
[2018-01-23] MEDS: CARVEDILOL 6.25 MG TABLET PO SCH (09:49)
[2018-01-23] MEDS: metOLazone 5 MG TABLET PO SCH (09:49)
[2018-01-23] MEDS: APIXABAN 5 MG TABLET PO SCH (09:49)
[2018-01-23 12:17] VITALS: BP 104/64
[2018-01-23] MEDS ORDERED: DIGOXIN 0.25 MG TABLET PO SCH (13:00)
== END 2018-01-23 14:37 | disposition home health service (06) | DRG 293 ==
LOC: N.ED 19:35 → SUATTDRO 23:02 → N.EDINP 23:02 → N.TELES 01-18 01:14
PROVIDERS: ADMIT Hospitalist; ATTEND Internal Medicine